=== PATIENT | female | born 1940 | race Hispanic/Latino ===

== ENCOUNTER 2021-11-14 09:33 | Outpatient (CLI) | payer MEDICARE, OTHER ==
--- NOTE | 2021-11-14 11:16 | Mammography Report ---
DEXA BONE DENSITY SCAN INDICATION / CLINICAL INFORMATION: MENOPAUSE Z78.0/ OSTEOPOROSIS SCREENING Z13.820. 81 years Female COMPARISON: None available. LUMBAR SPINE, L2-L4: - Bone mineral density (BMD) = 1.206 g/cm2. - T-score = 1.2 - Z-score = 3.9 LEFT HIP, NECK : - Bone mineral density (BMD) = 0.693 g/cm2. - T-score = -1.4 - Z-score = 0.9 IMPRESSION: 1. WHO Classification: Osteopenia. Fracture Risk: Increased. 2. 10-Year Fracture Risk (FRAX) not reported. FRAX generally not reported for patients with normal or osteoporotic BMD, in [id number] pj ents younger than age 50, or in patients undergoing pharmacotherapy BMD Reporting Guidelines (ISCD, 2015) BMD Reporting in Postmenopausal Women and in Men Age 50 and Older - T-scores are preferred. - The WHO densitometric classification is applicable. BMD Reporting in Females Prior to Menopause and in Males Younger Than Age 50 - Z-scores, not T-scores, are preferred. This is particularly important in children. - A Z-score of -2.0 or lower is defined as below the expected range for age, and a Z-score above -2.0 is within the expected range for age. - Osteoporosis cannot be diagnosed in men under age 50 on the basis of BMD alone. - The WHO diagnostic criteria may be applied to women in the menopausal transition. http://www.iscd.org/official-positions/6981-pscx-hlbayvzo-positions-adult/ Signer Name: Alvin Keys MD Signed: 11/14/2021 11:12 AM Workstation Name: [facility]
== END 2021-11-14 09:34 | disposition home or self-care (01) ==
LOC: SPVWC 09:33
PROVIDERS: ATTEND Internal Medicine
DX: M85.88 Other specified disorders of bone density and structure, other site (principal); Z78.0 Asymptomatic menopausal state
CPT/HCPCS: 77080